=== PATIENT | female | born 1990 | race Caucasian/White ===

== ENCOUNTER 2018-01-27 16:16 | Emergency (ER) | payer SELFPAY ==
[~2018-01-27] VITALS: Ht 172.7 cm; Wt 90.5 kg
[~2018-01-27 16:16] MED LIST: Z.0.NO CURRENT MEDS
[2018-01-27 16:21] VITALS: BP 124/84; PULSE 98; RESP 18; TEMP 98.4; O2SAT 97
--- NOTE | 2018-01-27 16:50 | PD ---
HPI Chief Complaint: Edema Time Seen by Provider: 16:25 Travel History International Travel<30 days: No Contact w/Intl Traveler<30days: No Traveled to known affect area: No History of Present Illness HPI 27-year-old female with no significant medical history presents emergency department for evaluation of pedal edema noted today. Patient states she has been on her feet all day at work. She elevated them and it helps minimally and she was concerned because she has not had this happen to her before. She denies any recent illnesses. She denies any cough cardiac history. She denies any chest pain or shortness of breath. Normal urinary output. She did eat [employer] last evening. She has no other symptoms to report. History Past Medical Histgory LMP: DECEMBER 2017 Social History Alcohol Use: No Tobacco Use: Yes (VAPES) Allergies-Medications (Allergen,Severity, Reaction): Coded Allergies: No Known Allergies (Verified , 09/05/10) Reported Meds & Prescriptions Reported Meds & Active Scripts Active Reported No Current Meds (Miscellaneous Medication) Misc Review of Systems Except as stated in HPI: all other systems reviewed are Neg Physical Exam Narrative GENERAL: Well-nourished, well-developed female patient, ambulatory and in no acute distress SKIN: Focused skin assessment warm/dry. HEAD: Normocephalic. EYES: No scleral icterus. No injection or drainage. NECK: Supple, trachea midline. No JVD or lymphadenopathy. CARDIOVASCULAR: Regular rate and rhythm without murmurs, gallops, or rubs. RESPIRATORY: Breath sounds equal bilaterally. No accessory muscle use. GASTROINTESTINAL: Abdomen soft, non-tender, nondistended. MUSCULOSKELETAL: No cyanosis. Trace bilateral pedal edema. BACK: Nontender without obvious deformity. No CVA tenderness. Data Data Last Documented VS Vital Signs Date Time Temp Pulse Resp B/P (MAP) Pulse Ox O2 Delivery O2 Flow Rate FiO2 01/27/18 16:21 98.4 98 18 124/84 (97) 97 MDM Medical Screen Exam Complete: Yes Emergency Medical Condition: No Differential Diagnosis BLE edema Narrative Course 27-year-old female presents emergency department for evaluation of bilateral pedal edema. Patient appears without distress. Her vital signs are stable. Lung sounds are clear. She has no cardiac history. This is likely from higher sodium diet and prolonged standing. I have encouraged low-sodium diet and advised her to elevate the lower extremities. At this time there are no urgent or emergent needs medical intervention identified. A medical screening exam was performed: At the time of evaluation the presenting medical condition was determined not to be of an emergent nature. The patient was given the option of receiving additional care, but declined. Patient was given options for additional community resources from which to obtain care. The Patient Has Been advised to seek medical attention for their presenting complaint. The patient has been advised to return to the ER at any time if an emergent condition develops. Primary Impression: Encounter for medical screening examination Condition: Stable Kathy Marin January 27, 2018 16:50
== END 2018-01-27 17:04 | disposition left against medical advice (07) ==
LOC: NEPC 16:16
DX: R60.9 Edema, unspecified (principal)
CPT/HCPCS: 99281